=== PATIENT | female | born 1985 | race Caucasian/White ===

== ENCOUNTER 2020-12-27 10:34 | Day surgery (SDC) | payer BC ==
[~2020-12-27] VITALS: Ht 167.6 cm; Wt 73.7 kg
[2020-12-27] MEDS ORDERED: PROZAC40 MG PO (11:27)
[2020-12-27] MEDS ORDERED: SAPHRIS10 MG SL (11:28)
[2020-12-27 11:45] VITALS: BP 105/68; PULSE 81; TEMP 97.8
[2020-12-27 13:35] VITALS: BP 91/52; PULSE 74; TEMP 97.7
--- NOTE | 2020-12-27 13:35 | NUR ---
The patient arrived back to [facility] from the recovery room at this time. The patient is alert and oriented and denies any pain or nausea at this time. Post operative vital signs were started at this time. The patient agrees to try some apple juice at this time. The patient's port a catheter is acessed and covered with a tegaderm that is intact with a bandaid over the access site. Call light is within reach. Mother at bedside. Will continue to monitor the patient.
[2020-12-27] MEDS ORDERED: NORCO 325 MG-51 TAB PO (13:38)
[2020-12-27 13:50] VITALS: BP 97/58; PULSE 68
--- NOTE | 2020-12-27 13:50 | NUR ---
The patient appears to be tolerating the juice well. Vital signs appear stable. Call light is within reach. Will continue to monitor the patient.
[2020-12-27 14:05] VITALS: BP 104/66; PULSE 72
--- NOTE | 2020-12-27 14:14 | NUR ---
The patient voices a desire to be discharged home. Discharge instructions were reviewed with the patient and her mother at this time. They both verbalized understanding and have no questions for the nurse at this time. The patient's IV to her right hand was removed and a pressure dressing was applied to the site. The nurse instructed the patient to get dressed and notify the staff when she is ready to be escorted out.
--- NOTE | 2020-12-27 14:25 | NUR ---
The patient was escorted out via wheelchair to a private vehicle by PEPE Taylor. The patient's belongings and discharge paperwork were sent with her. The patient's mother is present to drive her home.
== END 2020-12-27 14:25 | disposition home or self-care (01) ==
LOC: SDCO 10:34
DX: C56.1 Malignant neoplasm of right ovary (principal); C56.2 Malignant neoplasm of left ovary; C78.2 Secondary malignant neoplasm of pleura; C78.6 Secondary malignant neoplasm of retroperitoneum and peritoneum; J45.909 Unspecified asthma, uncomplicated; K21.9 Gastro-esophageal reflux disease without esophagitis; F32.9 Major depressive disorder, single episode, unspecified; F41.9 Anxiety disorder, unspecified; Z88.1 Allergy status to other antibiotic agents; Z88.8 Allergy status to other drugs, medicaments and biological substances
CPT/HCPCS: C1788; J1100; J1644; J2250; J2405; J2704; J3010; J7120